=== PATIENT | female | born 1955 | race Caucasian/White ===

== ENCOUNTER 2021-12-12 11:28 | Inpatient (IN) | payer MEDICARE, OTHER ==
[2021-12-12 13:04] LABS: ANION GAP 19.8 mEq/L (7-13)
[2021-12-12] MEDS ORDERED: Sodium Chloride 0.9% 1,000 ML IV ONE (13:18)
[2021-12-12] MEDS ORDERED: Piperacillin/Tazobactam 3.375 GM in Sodium Chloride 0.9% 100 ML IV ONE ×2 (13:26→18:00)
[2021-12-12] MEDS ORDERED: Ondansetron 4 MG/2 ML SDV IVPUSH ONE (13:57)
[2021-12-12] MEDS ORDERED: Lidocaine 2% Jelly 10 ML Urojet MUCMEM ONE (14:15)
[2021-12-12] MEDS ORDERED: Acetaminophen/HYDROcodone 325-5 MG Tab PO PRN (15:09)
[2021-12-12] MEDS ORDERED: Ondansetron 4 MG/2 ML SDV IVPUSH PRN (15:10)
[2021-12-12] MEDS ORDERED: Polyethylene Glycol 3350 Powder 17 GM Packet PO PRN (15:10)
[2021-12-12] MEDS ORDERED: Magnesium Hydroxide 400 MG/5 ML Susp 30 ML Cup PO PRN (15:10)
[2021-12-12] MEDS ORDERED: Albuterol/Ipratropium 3.0-0.5 MG/3 ML Neb Soln NEB PRN (15:10)
[2021-12-12] MEDS ORDERED: HYDROmorphone 0.5 MG/0.5 ML Syringe IVPUSH PRN (15:10)
[2021-12-12] MEDS: Sodium Chloride 0.9% 1,000 ML IV SCH (17:09)
[2021-12-12] MEDS: Saccharomyces Boulardii (Probiotic) 250 MG Cap PO SCH (21:19)
[2021-12-12] MEDS: Phenazopyridine 95 MG Tab PO SCH (21:20)
[2021-12-12] MEDS: Piperacillin/Tazobactam 2.25 GM in Sodium Chloride 0.9% 50 ML IV SCH (21:20)
[2021-12-12] MEDS: Zolpidem 5 MG Tab PO PRN (21:22)
[2021-12-12] MEDS ORDERED: Dexamethasone 4 MG/ML SDV IVPUSH ONE (22:27)
[2021-12-12] MEDS ORDERED: Pantoprazole 40 MG Vial IVPUSH ONE (22:29)
[2021-12-12] MEDS: Hydroxychloroquine 200 MG Tab PO SCH (23:48)
[2021-12-13] MEDS: Sodium Chloride 0.9% 1,000 ML IV SCH ×2 (04:33→16:08)
[2021-12-13] MEDS: Piperacillin/Tazobactam 2.25 GM in Sodium Chloride 0.9% 50 ML IV SCH ×3 (06:12→21:22)
[2021-12-13] MEDS: Levothyroxine 50 MCG Tab PO SCH (06:13)
[2021-12-13 07:34] LABS: ANION GAP 19.5 mEq/L (7-13)
[2021-12-13] MEDS: Sodium Chloride 0.9% 10 ML Syringe FLUSH SCH ×3 (08:19→21:22)
[2021-12-13] MEDS: predniSONE 20 MG Tab PO SCH (08:19)
[2021-12-13] MEDS: DULoxetine 30 MG Cap PO SCH (08:19)
[2021-12-13] MEDS: Saccharomyces Boulardii (Probiotic) 250 MG Cap PO SCH ×2 (08:20→21:21)
[2021-12-13] MEDS: Hydroxychloroquine 200 MG Tab PO SCH (08:20)
[2021-12-13] MEDS: Phenazopyridine 95 MG Tab PO SCH ×2 (08:20→21:21)
[2021-12-13] MEDS: Cholecalciferol (Vitamin D3) 25 MCG Tab PO SCH (08:20)
[2021-12-13] MEDS: Pantoprazole 40 MG Vial IVPUSH SCH ×2 (08:21→21:21)
[2021-12-13] MEDS ORDERED: Simethicone 80 MG Tab.Chew PO PRN (15:55)
[2021-12-13] MEDS: Zolpidem 5 MG Tab PO PRN (21:59)
[2021-12-13] MEDS ORDERED: Sodium Bicarbonate 650 MG Tab PO STA ×2 (22:03)
[2021-12-14] MEDS: Sodium Chloride 0.9% 1,000 ML IV SCH (03:01)
[2021-12-14] MEDS: Levothyroxine 50 MCG Tab PO SCH (05:58)
[2021-12-14] MEDS: Piperacillin/Tazobactam 2.25 GM in Sodium Chloride 0.9% 50 ML IV SCH ×3 (05:58→21:26)
[2021-12-14 07:14] LABS: ANION GAP 19.2 mEq/L (7-13)
[2021-12-14] MEDS: predniSONE 20 MG Tab PO SCH (08:14)
[2021-12-14] MEDS: Cholecalciferol (Vitamin D3) 25 MCG Tab PO SCH (08:14)
[2021-12-14] MEDS: Hydroxychloroquine 200 MG Tab PO SCH (08:15)
[2021-12-14] MEDS: DULoxetine 30 MG Cap PO SCH (08:15)
[2021-12-14] MEDS: Phenazopyridine 95 MG Tab PO SCH ×2 (08:15→21:21)
[2021-12-14] MEDS: Sodium Chloride 0.9% 10 ML Syringe FLUSH SCH (08:18)
[2021-12-14] MEDS: Pantoprazole 40 MG Vial IVPUSH SCH ×2 (08:18→21:26)
[2021-12-14] MEDS ORDERED: Sodium Bicarbonate 650 MG Tab PO SCH (09:00)
[2021-12-14] MEDS: Saccharomyces Boulardii (Probiotic) 250 MG Cap PO SCH ×2 (09:56→21:20)
[2021-12-14] MEDS ORDERED: NACL IV SCH (10:30)
[2021-12-14] MEDS ORDERED: DEXTROSE IV SCH (10:30)
[2021-12-14] MEDS ORDERED: SODIUM BICARBONATE IV SCH (10:30)
[2021-12-14 20:21] LABS: ANION GAP 14.3 mEq/L (7-13)
[2021-12-14] MEDS: Zolpidem 5 MG Tab PO PRN (21:21)
[2021-12-14] MEDS: Sodium Chloride 0.9% 10 ML Syringe FLUSH PRN (21:27)
[2021-12-15] MEDS: Levothyroxine 50 MCG Tab PO SCH (05:41)
[2021-12-15] MEDS: Piperacillin/Tazobactam 2.25 GM in Sodium Chloride 0.9% 50 ML IV SCH ×3 (05:41→22:02)
[2021-12-15] MEDS: Phenazopyridine 95 MG Tab PO SCH (09:27)
[2021-12-15] MEDS: Hydroxychloroquine 200 MG Tab PO SCH (09:28)
[2021-12-15] MEDS: Sodium Chloride 0.9% 10 ML Syringe FLUSH SCH ×3 (09:28→20:58)
[2021-12-15] MEDS: Saccharomyces Boulardii (Probiotic) 250 MG Cap PO SCH ×2 (09:28→20:45)
[2021-12-15] MEDS: predniSONE 20 MG Tab PO SCH (09:28)
[2021-12-15] MEDS: DULoxetine 30 MG Cap PO SCH (09:29)
[2021-12-15] MEDS: Pantoprazole 40 MG Vial IVPUSH SCH ×2 (09:29→20:47)
[2021-12-15] MEDS: Cholecalciferol (Vitamin D3) 25 MCG Tab PO SCH (09:29)
[2021-12-15] MEDS: Acetaminophen 325 MG Tab PO PRN (18:20)
[2021-12-15] MEDS ORDERED: Sodium Chloride 0.9% 1,000 ML IV SCH (20:15)
[2021-12-15] MEDS: Melatonin 3 MG Tab PO PRN (20:46)
[2021-12-15] MEDS: diphenhydrAMINE 25 MG Tab PO PRN (20:46)
[2021-12-15] MEDS: Temazepam 15 MG Cap PO PRN (20:46)
[2021-12-16] MEDS: Piperacillin/Tazobactam 2.25 GM in Sodium Chloride 0.9% 50 ML IV SCH ×3 (05:40→21:41)
[2021-12-16] MEDS: Levothyroxine 50 MCG Tab PO SCH (05:42)
[2021-12-16 07:02] LABS: ANION GAP 13.8 mEq/L (7-13)
[2021-12-16] MEDS: Saccharomyces Boulardii (Probiotic) 250 MG Cap PO SCH ×2 (08:49→20:40)
[2021-12-16] MEDS: predniSONE 20 MG Tab PO SCH (08:49)
[2021-12-16] MEDS: Sodium Chloride 0.9% 10 ML Syringe FLUSH SCH ×2 (08:50→20:40)
[2021-12-16] MEDS: DULoxetine 30 MG Cap PO SCH (08:50)
[2021-12-16] MEDS: Cholecalciferol (Vitamin D3) 25 MCG Tab PO SCH (08:50)
[2021-12-16] MEDS: Hydroxychloroquine 200 MG Tab PO SCH (08:50)
[2021-12-16] MEDS: Pantoprazole 40 MG Vial IVPUSH SCH ×2 (08:57→20:38)
[2021-12-16] MEDS ORDERED: Magnesium Sulfate/Water 2 GM in Premix Bag 1 BAG IV ONE (10:00)
[2021-12-16] MEDS: Temazepam 15 MG Cap PO PRN (20:39)
[2021-12-16] MEDS: diphenhydrAMINE 25 MG Tab PO PRN (20:39)
[2021-12-16] MEDS: Melatonin 3 MG Tab PO PRN (20:39)
[2021-12-17] MEDS: Piperacillin/Tazobactam 2.25 GM in Sodium Chloride 0.9% 50 ML IV SCH (05:31)
[2021-12-17] MEDS: Levothyroxine 50 MCG Tab PO SCH (05:31)
[2021-12-17] MEDS: Pantoprazole 40 MG Vial IVPUSH SCH ×2 (08:27→20:51)
[2021-12-17] MEDS: Cholecalciferol (Vitamin D3) 25 MCG Tab PO SCH (08:27)
[2021-12-17] MEDS: predniSONE 20 MG Tab PO SCH (08:27)
[2021-12-17] MEDS: Hydroxychloroquine 200 MG Tab PO SCH (08:27)
[2021-12-17] MEDS: DULoxetine 30 MG Cap PO SCH (08:27)
[2021-12-17] MEDS: Sodium Chloride 0.9% 10 ML Syringe FLUSH SCH ×2 (08:28→20:50)
[2021-12-17] MEDS: Saccharomyces Boulardii (Probiotic) 250 MG Cap PO SCH ×2 (08:29→20:46)
[2021-12-17] MEDS ORDERED: Phenazopyridine 95 MG Tab PO PRN (10:41)
[2021-12-17] MEDS: Melatonin 3 MG Tab PO PRN (20:44)
[2021-12-17] MEDS: Phenazopyridine 95 MG Tab PO SCH (20:44)
[2021-12-17] MEDS: Ciprofloxacin 500 MG Tab PO SCH (20:44)
[2021-12-17] MEDS: diphenhydrAMINE 25 MG Tab PO PRN (23:29)
[2021-12-18] MEDS: Sodium Chloride 0.9% 10 ML Syringe FLUSH PRN (06:34)
[2021-12-18] MEDS: Levothyroxine 50 MCG Tab PO SCH (06:41)
[2021-12-18] MEDS: Saccharomyces Boulardii (Probiotic) 250 MG Cap PO SCH ×2 (08:22→20:33)
[2021-12-18] MEDS: DULoxetine 30 MG Cap PO SCH (08:22)
[2021-12-18] MEDS: Hydroxychloroquine 200 MG Tab PO SCH (08:22)
[2021-12-18] MEDS: predniSONE 20 MG Tab PO SCH (08:23)
[2021-12-18] MEDS: Phenazopyridine 95 MG Tab PO SCH ×2 (08:23→20:34)
[2021-12-18] MEDS: Ciprofloxacin 500 MG Tab PO SCH ×2 (08:24→20:33)
[2021-12-18] MEDS: Cholecalciferol (Vitamin D3) 25 MCG Tab PO SCH (08:24)
[2021-12-18] MEDS: Sodium Chloride 0.9% 10 ML Syringe FLUSH SCH ×2 (08:25→20:35)
[2021-12-18] MEDS: Pantoprazole 40 MG Vial IVPUSH SCH ×2 (08:25→20:35)
[2021-12-19] MEDS: Levothyroxine 50 MCG Tab PO SCH (05:45)
[2021-12-19] MEDS: Ciprofloxacin 500 MG Tab PO SCH ×2 (08:25→20:30)
[2021-12-19] MEDS: Saccharomyces Boulardii (Probiotic) 250 MG Cap PO SCH ×2 (08:26→20:30)
[2021-12-19] MEDS: Phenazopyridine 95 MG Tab PO SCH ×2 (08:27→20:31)
[2021-12-19] MEDS: predniSONE 20 MG Tab PO SCH (08:29)
[2021-12-19] MEDS: Hydroxychloroquine 200 MG Tab PO SCH (08:29)
[2021-12-19] MEDS: Cholecalciferol (Vitamin D3) 25 MCG Tab PO SCH (08:30)
[2021-12-19] MEDS: DULoxetine 30 MG Cap PO SCH (08:30)
[2021-12-19] MEDS: Pantoprazole 40 MG Vial IVPUSH SCH ×2 (08:31→20:29)
[2021-12-19] MEDS: Sodium Chloride 0.9% 10 ML Syringe FLUSH SCH (08:31)
[2021-12-19 10:15] LABS: ANION GAP 10.9 mEq/L (7-13)
[2021-12-19] MEDS: Acetaminophen 325 MG Tab PO PRN (14:44)
[2021-12-19] MEDS: Melatonin 3 MG Tab PO PRN (20:31)
[2021-12-19] MEDS: Temazepam 15 MG Cap PO PRN (20:31)
[2021-12-19] MEDS: diphenhydrAMINE 25 MG Tab PO PRN (20:31)
[2021-12-20] MEDS: Levothyroxine 50 MCG Tab PO SCH (05:20)
[2021-12-20] MEDS: predniSONE 20 MG Tab PO SCH (08:16)
[2021-12-20] MEDS: Phenazopyridine 95 MG Tab PO SCH ×2 (08:16→21:04)
[2021-12-20] MEDS: Saccharomyces Boulardii (Probiotic) 250 MG Cap PO SCH ×2 (08:16→21:03)
[2021-12-20] MEDS: Hydroxychloroquine 200 MG Tab PO SCH (08:16)
[2021-12-20] MEDS: Pantoprazole 40 MG Vial IVPUSH SCH ×2 (08:16→21:04)
[2021-12-20] MEDS: Ciprofloxacin 500 MG Tab PO SCH ×2 (08:17→21:03)
[2021-12-20] MEDS: DULoxetine 30 MG Cap PO SCH (08:17)
[2021-12-20] MEDS: Cholecalciferol (Vitamin D3) 25 MCG Tab PO SCH (08:17)
[2021-12-20] MEDS: Sodium Chloride 0.9% 10 ML Syringe FLUSH SCH ×3 (08:21→21:04)
[2021-12-20] MEDS: diphenhydrAMINE 25 MG Tab PO PRN (21:03)
[2021-12-20] MEDS: Melatonin 3 MG Tab PO PRN (21:03)
[2021-12-20] MEDS: Temazepam 15 MG Cap PO PRN (21:03)
[2021-12-21] MEDS: Acetaminophen 325 MG Tab PO PRN ×3 (01:59→22:18)
[2021-12-21] MEDS: Levothyroxine 50 MCG Tab PO SCH (06:14)
[2021-12-21] MEDS: Sodium Chloride 0.9% 10 ML Syringe FLUSH SCH ×2 (10:22→21:43)
[2021-12-21] MEDS: Saccharomyces Boulardii (Probiotic) 250 MG Cap PO SCH ×2 (10:22→21:42)
[2021-12-21] MEDS: predniSONE 20 MG Tab PO SCH (10:22)
[2021-12-21] MEDS: Cholecalciferol (Vitamin D3) 25 MCG Tab PO SCH (10:23)
[2021-12-21] MEDS: Phenazopyridine 95 MG Tab PO SCH ×2 (10:23→21:42)
[2021-12-21] MEDS: Ciprofloxacin 500 MG Tab PO SCH ×2 (10:23→21:41)
[2021-12-21] MEDS: DULoxetine 30 MG Cap PO SCH (10:23)
[2021-12-21] MEDS: Hydroxychloroquine 200 MG Tab PO SCH (10:23)
[2021-12-21] MEDS: Pantoprazole 40 MG Vial IVPUSH SCH ×2 (10:25→21:42)
[2021-12-21] MEDS: diphenhydrAMINE 25 MG Tab PO PRN (22:19)
[2021-12-21] MEDS: Melatonin 3 MG Tab PO PRN (22:19)
[2021-12-21] MEDS: Temazepam 15 MG Cap PO PRN (22:19)
[2021-12-22] MEDS: Levothyroxine 50 MCG Tab PO SCH (06:25)
[2021-12-22] MEDS: Saccharomyces Boulardii (Probiotic) 250 MG Cap PO SCH ×2 (08:59→20:49)
[2021-12-22] MEDS: DULoxetine 30 MG Cap PO SCH (08:59)
[2021-12-22] MEDS: Cholecalciferol (Vitamin D3) 25 MCG Tab PO SCH (08:59)
[2021-12-22] MEDS: predniSONE 20 MG Tab PO SCH (08:59)
[2021-12-22] MEDS: Hydroxychloroquine 200 MG Tab PO SCH (08:59)
[2021-12-22] MEDS: Phenazopyridine 95 MG Tab PO SCH ×2 (08:59→20:49)
[2021-12-22] MEDS: Sodium Chloride 0.9% 10 ML Syringe FLUSH SCH ×2 (09:00→21:50)
[2021-12-22] MEDS: Pantoprazole 40 MG Vial IVPUSH SCH (09:00)
[2021-12-22] MEDS: Acetaminophen 325 MG Tab PO PRN (20:48)
[2021-12-22] MEDS: Melatonin 3 MG Tab PO PRN (20:49)
[2021-12-22] MEDS: Temazepam 15 MG Cap PO PRN (20:49)
[2021-12-22] MEDS: diphenhydrAMINE 25 MG Tab PO PRN (20:50)
[2021-12-23] MEDS: Pantoprazole 40 MG Tab.CR PO SCH ×2 (06:01→18:03)
[2021-12-23] MEDS: Levothyroxine 50 MCG Tab PO SCH (06:01)
[2021-12-23 07:13] LABS: ANION GAP 9.5 mEq/L (7-13)
[2021-12-23] MEDS: Hydroxychloroquine 200 MG Tab PO SCH (08:54)
[2021-12-23] MEDS: Cholecalciferol (Vitamin D3) 25 MCG Tab PO SCH (08:54)
[2021-12-23] MEDS: DULoxetine 30 MG Cap PO SCH (08:54)
[2021-12-23] MEDS: Saccharomyces Boulardii (Probiotic) 250 MG Cap PO SCH ×2 (08:54→21:39)
[2021-12-23] MEDS: predniSONE 20 MG Tab PO SCH (08:54)
[2021-12-23] MEDS: Phenazopyridine 95 MG Tab PO SCH ×2 (08:54→21:39)
[2021-12-23] MEDS: Sodium Chloride 0.9% 10 ML Syringe FLUSH SCH ×2 (08:56→21:40)
[2021-12-23] MEDS: Temazepam 15 MG Cap PO PRN (21:39)
[2021-12-23] MEDS: diphenhydrAMINE 25 MG Tab PO PRN (21:39)
[2021-12-24] MEDS: Pantoprazole 40 MG Tab.CR PO SCH ×2 (05:19→15:53)
[2021-12-24] MEDS: Levothyroxine 50 MCG Tab PO SCH (05:20)
[2021-12-24] MEDS: Cholecalciferol (Vitamin D3) 25 MCG Tab PO SCH (08:03)
[2021-12-24] MEDS: Saccharomyces Boulardii (Probiotic) 250 MG Cap PO SCH ×2 (08:03→21:11)
[2021-12-24] MEDS: predniSONE 20 MG Tab PO SCH (08:04)
[2021-12-24] MEDS: DULoxetine 30 MG Cap PO SCH (08:04)
[2021-12-24] MEDS: Phenazopyridine 95 MG Tab PO SCH ×2 (08:04→21:11)
[2021-12-24] MEDS: Hydroxychloroquine 200 MG Tab PO SCH (08:05)
[2021-12-24] MEDS: Sodium Chloride 0.9% 10 ML Syringe FLUSH SCH ×2 (08:07→22:35)
[2021-12-24] MEDS: Nystatin Topical Powder 30 GM Bottle TOP SCH ×2 (08:09→20:30)
[2021-12-24] MEDS: Tamsulosin 0.4 MG Cap.ER PO SCH (13:54)
[2021-12-24] MEDS: Melatonin 3 MG Tab PO PRN (21:11)
[2021-12-24] MEDS: Temazepam 15 MG Cap PO PRN (21:11)
[2021-12-24] MEDS: diphenhydrAMINE 25 MG Tab PO PRN (21:11)
[2021-12-25] MEDS: Pantoprazole 40 MG Tab.CR PO SCH ×2 (06:12→15:15)
[2021-12-25] MEDS: Levothyroxine 50 MCG Tab PO SCH (06:12)
[2021-12-25 07:05] LABS: ANION GAP 11.8 mEq/L (7-13)
[2021-12-25] MEDS: Phenazopyridine 95 MG Tab PO SCH ×2 (10:00→21:00)
[2021-12-25] MEDS: Saccharomyces Boulardii (Probiotic) 250 MG Cap PO SCH ×2 (10:00→21:00)
[2021-12-25] MEDS: Cholecalciferol (Vitamin D3) 25 MCG Tab PO SCH (10:00)
[2021-12-25] MEDS: Hydroxychloroquine 200 MG Tab PO SCH (10:01)
[2021-12-25] MEDS: Tamsulosin 0.4 MG Cap.ER PO SCH (10:01)
[2021-12-25] MEDS: predniSONE 20 MG Tab PO SCH (10:01)
[2021-12-25] MEDS: Sodium Chloride 0.9% 10 ML Syringe FLUSH SCH ×2 (10:01→21:01)
[2021-12-25] MEDS: DULoxetine 30 MG Cap PO SCH (10:01)
[2021-12-25] MEDS: Nystatin Topical Powder 30 GM Bottle TOP SCH ×2 (10:04→21:01)
[2021-12-25] MEDS: Temazepam 15 MG Cap PO PRN (21:00)
[2021-12-25] MEDS: diphenhydrAMINE 25 MG Tab PO PRN (21:00)
[2021-12-25] MEDS: Melatonin 3 MG Tab PO PRN (21:00)
[2021-12-25] MEDS: Acetaminophen 325 MG Tab PO PRN (21:09)
[2021-12-26] MEDS: Pantoprazole 40 MG Tab.CR PO SCH ×2 (06:02→15:05)
[2021-12-26] MEDS: Levothyroxine 50 MCG Tab PO SCH (06:02)
[2021-12-26 07:16] LABS: ANION GAP 10.4 mEq/L (7-13)
[2021-12-26] MEDS: predniSONE 20 MG Tab PO SCH (08:19)
[2021-12-26] MEDS: Saccharomyces Boulardii (Probiotic) 250 MG Cap PO SCH ×2 (08:19→21:20)
[2021-12-26] MEDS: Cholecalciferol (Vitamin D3) 25 MCG Tab PO SCH (08:20)
[2021-12-26] MEDS: Hydroxychloroquine 200 MG Tab PO SCH (08:20)
[2021-12-26] MEDS: Tamsulosin 0.4 MG Cap.ER PO SCH (08:20)
[2021-12-26] MEDS: Phenazopyridine 95 MG Tab PO SCH ×2 (08:20→21:20)
[2021-12-26] MEDS: Sodium Chloride 0.9% 10 ML Syringe FLUSH SCH (08:20)
[2021-12-26] MEDS: DULoxetine 30 MG Cap PO SCH (08:20)
[2021-12-26] MEDS: Nystatin Topical Powder 30 GM Bottle TOP SCH ×2 (15:06→21:43)
[2021-12-26] MEDS ORDERED: Metoclopramide 10 MG/2 ML SDV IM ONE (17:25)
[2021-12-26] MEDS: diphenhydrAMINE 25 MG Tab PO PRN (21:21)
[2021-12-26] MEDS: Temazepam 15 MG Cap PO PRN (21:21)
[2021-12-26] MEDS: Acetaminophen 325 MG Tab PO PRN (21:22)
[2021-12-26] MEDS: Melatonin 3 MG Tab PO PRN (21:23)
[2021-12-27] MEDS: Levothyroxine 50 MCG Tab PO SCH (06:07)
[2021-12-27] MEDS: Pantoprazole 40 MG Tab.CR PO SCH ×2 (06:07→15:54)
[2021-12-27] MEDS: Phenazopyridine 95 MG Tab PO SCH ×2 (08:38→21:06)
[2021-12-27] MEDS: Saccharomyces Boulardii (Probiotic) 250 MG Cap PO SCH ×2 (08:38→21:06)
[2021-12-27] MEDS: Cholecalciferol (Vitamin D3) 25 MCG Tab PO SCH (08:39)
[2021-12-27] MEDS: Hydroxychloroquine 200 MG Tab PO SCH (08:39)
[2021-12-27] MEDS: DULoxetine 30 MG Cap PO SCH (08:39)
[2021-12-27] MEDS: Tamsulosin 0.4 MG Cap.ER PO SCH (08:39)
[2021-12-27] MEDS: predniSONE 10 MG Tab PO SCH (08:39)
[2021-12-27] MEDS: Nystatin Topical Powder 30 GM Bottle TOP SCH ×2 (08:40→21:07)
[2021-12-27] MEDS: Melatonin 3 MG Tab PO PRN (21:06)
[2021-12-27] MEDS: diphenhydrAMINE 25 MG Tab PO PRN (21:06)
[2021-12-27] MEDS: Temazepam 15 MG Cap PO PRN (21:06)
[2021-12-28] MEDS: Levothyroxine 50 MCG Tab PO SCH (05:12)
[2021-12-28] MEDS: Pantoprazole 40 MG Tab.CR PO SCH ×2 (05:12→18:23)
[2021-12-28 07:02] LABS: ANION GAP 11.4 mEq/L (7-13)
[2021-12-28] MEDS: Cholecalciferol (Vitamin D3) 25 MCG Tab PO SCH (09:46)
[2021-12-28] MEDS: Saccharomyces Boulardii (Probiotic) 250 MG Cap PO SCH ×2 (09:47→21:33)
[2021-12-28] MEDS: DULoxetine 30 MG Cap PO SCH (09:47)
[2021-12-28] MEDS: Hydroxychloroquine 200 MG Tab PO SCH (09:47)
[2021-12-28] MEDS: predniSONE 10 MG Tab PO SCH (09:47)
[2021-12-28] MEDS: Phenazopyridine 95 MG Tab PO SCH ×2 (09:48→21:34)
[2021-12-28] MEDS: Tamsulosin 0.4 MG Cap.ER PO SCH (09:49)
[2021-12-28] MEDS: Nystatin Topical Powder 30 GM Bottle TOP SCH ×2 (10:51→21:34)
[2021-12-28] MEDS: diphenhydrAMINE 25 MG Tab PO PRN (21:34)
[2021-12-28] MEDS: Melatonin 3 MG Tab PO PRN (21:34)
[2021-12-28] MEDS: Temazepam 15 MG Cap PO PRN (21:34)
[2021-12-28] MEDS: Acetaminophen 325 MG Tab PO PRN (21:34)
[2021-12-29] MEDS: Levothyroxine 50 MCG Tab PO SCH (06:03)
[2021-12-29] MEDS: Pantoprazole 40 MG Tab.CR PO SCH ×2 (06:03→17:24)
[2021-12-29 06:58] LABS: ANION GAP 11.1 mEq/L (7-13)
[2021-12-29] MEDS: Nystatin Topical Powder 30 GM Bottle TOP SCH ×2 (08:17→21:40)
[2021-12-29] MEDS: Saccharomyces Boulardii (Probiotic) 250 MG Cap PO SCH ×2 (08:17→21:37)
[2021-12-29] MEDS: Tamsulosin 0.4 MG Cap.ER PO SCH (08:17)
[2021-12-29] MEDS: Cholecalciferol (Vitamin D3) 25 MCG Tab PO SCH (08:17)
[2021-12-29] MEDS: predniSONE 10 MG Tab PO SCH (08:17)
[2021-12-29] MEDS: Hydroxychloroquine 200 MG Tab PO SCH (08:17)
[2021-12-29] MEDS: Phenazopyridine 95 MG Tab PO SCH (08:17)
[2021-12-29] MEDS: DULoxetine 30 MG Cap PO SCH (08:17)
[2021-12-29] MEDS: Acetaminophen 325 MG Tab PO PRN (21:37)
[2021-12-29] MEDS: Melatonin 3 MG Tab PO PRN (21:37)
[2021-12-29] MEDS: Temazepam 15 MG Cap PO PRN (21:37)
[2021-12-29] MEDS: diphenhydrAMINE 25 MG Tab PO PRN (21:38)
[2021-12-30] MEDS: Levothyroxine 50 MCG Tab PO SCH (05:43)
[2021-12-30] MEDS: Pantoprazole 40 MG Tab.CR PO SCH ×2 (05:43→15:27)
[2021-12-30 07:11] LABS: ANION GAP 10.6 mEq/L (7-13)
[2021-12-30] MEDS: DULoxetine 30 MG Cap PO SCH (08:01)
[2021-12-30] MEDS: Hydroxychloroquine 200 MG Tab PO SCH (08:02)
[2021-12-30] MEDS: Saccharomyces Boulardii (Probiotic) 250 MG Cap PO SCH ×2 (08:02→20:25)
[2021-12-30] MEDS: predniSONE 10 MG Tab PO SCH (08:02)
[2021-12-30] MEDS: Tamsulosin 0.4 MG Cap.ER PO SCH (08:02)
[2021-12-30] MEDS: Cholecalciferol (Vitamin D3) 25 MCG Tab PO SCH (08:02)
[2021-12-30] MEDS: Nystatin Topical Powder 30 GM Bottle TOP SCH ×2 (08:05→20:32)
[2021-12-30] MEDS: Temazepam 15 MG Cap PO PRN (20:26)
[2021-12-30] MEDS: diphenhydrAMINE 25 MG Tab PO PRN (20:26)
[2021-12-30] MEDS: Melatonin 3 MG Tab PO PRN (20:26)
[2021-12-31] MEDS: Levothyroxine 50 MCG Tab PO SCH (05:12)
[2021-12-31] MEDS: Pantoprazole 40 MG Tab.CR PO SCH ×2 (05:13→16:58)
[2021-12-31 06:53] LABS: ANION GAP 9.1 mEq/L (7-13)
[2021-12-31] MEDS: DULoxetine 30 MG Cap PO SCH (08:22)
[2021-12-31] MEDS: Hydroxychloroquine 200 MG Tab PO SCH (08:22)
[2021-12-31] MEDS: Ciprofloxacin 500 MG Tab PO SCH ×2 (08:22→21:42)
[2021-12-31] MEDS: predniSONE 10 MG Tab PO SCH (08:22)
[2021-12-31] MEDS: Cholecalciferol (Vitamin D3) 25 MCG Tab PO SCH (08:22)
[2021-12-31] MEDS: Acetaminophen 325 MG Tab PO PRN (08:22)
[2021-12-31] MEDS: Saccharomyces Boulardii (Probiotic) 250 MG Cap PO SCH ×2 (08:22→21:42)
[2021-12-31] MEDS: Nystatin Topical Powder 30 GM Bottle TOP SCH ×2 (16:58→21:43)
[2021-12-31] MEDS: Temazepam 15 MG Cap PO PRN (21:42)
[2021-12-31] MEDS: Melatonin 3 MG Tab PO PRN (21:42)
[2021-12-31] MEDS: diphenhydrAMINE 25 MG Tab PO PRN (21:42)
[2022-01-01] MEDS: Pantoprazole 40 MG Tab.CR PO SCH (06:04)
[2022-01-01] MEDS: Levothyroxine 50 MCG Tab PO SCH (06:04)
[2022-01-01] MEDS: DULoxetine 30 MG Cap PO SCH (09:14)
[2022-01-01] MEDS: Hydroxychloroquine 200 MG Tab PO SCH (09:14)
[2022-01-01] MEDS: Ciprofloxacin 500 MG Tab PO SCH (09:14)
[2022-01-01] MEDS: Cholecalciferol (Vitamin D3) 25 MCG Tab PO SCH (09:14)
[2022-01-01] MEDS: Saccharomyces Boulardii (Probiotic) 250 MG Cap PO SCH (09:14)
[2022-01-01] MEDS: predniSONE 10 MG Tab PO SCH (09:15)
[2022-01-01] MEDS: Nystatin Topical Powder 30 GM Bottle TOP SCH (09:16)
== END 2022-01-01 12:30 | DRG 872 ==
LOC: DL.ED 11:28 → DL.MS 15:08
PROVIDERS: ADMIT Internal Medicine; ATTEND Internal Medicine
DX: A41.51 Sepsis due to Escherichia coli [E. coli] (principal); N10 Acute pyelonephritis; Z79.899 Other long term (current) drug therapy; E87.1 Hypo-osmolality and hyponatremia; N17.9 Acute kidney failure, unspecified; E87.20 Acidosis, unspecified; D69.3 Immune thrombocytopenic purpura; Z66 Do not resuscitate; Z20.822 Contact with and (suspected) exposure to COVID-19; N30.01 Acute cystitis with hematuria; M32.14 Glomerular disease in systemic lupus erythematosus; E87.8 Other disorders of electrolyte and fluid balance, not elsewhere classified; K80.20 Calculus of gallbladder without cholecystitis without obstruction; N18.30 Chronic kidney disease, stage 3 unspecified; M81.0 Age-related osteoporosis without current pathological fracture; E55.9 Vitamin D deficiency, unspecified; E03.9 Hypothyroidism, unspecified; G93.32 Myalgic encephalomyelitis/chronic fatigue syndrome; R74.8 Abnormal levels of other serum enzymes; R73.9 Hyperglycemia, unspecified; M32.9 Systemic lupus erythematosus, unspecified; Z28.82 Immunization not carried out because of caregiver refusal; Z87.891 Personal history of nicotine dependence; Z79.890 Hormone replacement therapy; Z79.52 Long term (current) use of systemic steroids
CPT/HCPCS: 36415; 51702; 74176; 76770; 80053; 81001; 81003; 82150; 82272; 83605; 83690; 83735; 84145; 84443; 85025; 86140; 87040 ×2; 87086; 87088; 87186; 96365; 96375; 99285; C1758; J2405; J2543; J7030; U0002; 51700; 51798; 80048; 82570; 82607; 82947; 84156; 85651; 86160; 86225; 97110-GP; 97116-GP; 97161-GP; 97165-GO; 97530-GO; 97530-GP; 99284; A9270-GY; C9113; J1100; J2765; J3475; J3490; J7042; J7512

== ENCOUNTER 2022-08-01 22:18 | Inpatient (IN) | payer MEDICARE, OTHER ==
[2022-08-01] MEDS ORDERED: Sodium Chloride 0.9% 10 ML Syringe FLUSH PRN (23:01)
[2022-08-01 23:48] LABS: HEMATOCRIT 44.2 % (37.0-47.0); HEMOGLOBIN 14.2 g/dL (12.0-16.0); MEAN CORPUSCULAR HEMOGLOBIN 31.2 pg (27.0-34.0); MEAN CORPUSCULAR HGB CONC 32.1 g/dL (33.0-35.0); MEAN CORPUSCULAR VOLUME 97.1 fL (80-100); PLATELET COUNT,PLT 243 10^3/uL (150-450); RED BLOOD CELL COUNT 4.55 10^6/uL (4.2-5.4); WHITE BLOOD CELL COUNT,WBC 17.8 10^3/uL (5.0-10.0)
[2022-08-01 23:57] LABS: BASOPHILS PERCENT AUTO 0.1 % (0.0-1.0); EOSINOPHILS PERCENT AUTO 0.1 % (1.0-3.0); LYMPHOCYTES PERCENT AUTO 1.5 % (20.5-50.1); MONOCYTES PERCENT AUTO 3.9 % (2-8); NEUTROPHILS PERCENT AUTO 94.4 % (42.2-75.2)
[2022-08-02 00:08] LABS: LACTIC ACID 1.7 mmol/L (0.4-2.0)
[2022-08-02 00:13] LABS: ALANINE AMINOTRANSFERASE,ALT 27 U/L (14-59); ALBUMIN 2.4 g/dL (3.4-5.0); ALKALINE PHOSPHATASE 268 U/L (46-116); ANION GAP 15.8 mEq/L (7-13); ASPARTATE AMNIOTRANSFERASE,AST 48 U/L (15-37); BLOOD UREA NITROGEN,BUN 38 mg/dL (7-18); BUN/CREATININE RATIO 17.8 (No establ ref range); CALCIUM 9.2 mg/dL (8.5-10.1); CARBON DIOXIDE,CO2 26 mmol/L (21-32); CHLORIDE,CL 96 mmol/L (98-107); CREATININE 2.13 mg/dL (0.55-1.02); EST CRCL DRUG DOSING (CG) 19.07 mL/min; GLUCOSE RANDOM 107 mg/dL (70-99); MAGNESIUM 1.8 mg/dL (1.8-2.4); POTASSIUM,K 3.8 mmol/L (3.5-5.1); PROTEIN TOTAL,TP 7.6 g/dL (6.4-8.2); SODIUM,NA 134 mmol/L (136-145); TSH ULTRASENSITIVE 0.68 uIU/mL (0.36-3.74)
[2022-08-02 00:19] LABS: A/G RATIO 0.46; ESTIMATED GFR 25 mL/min (>=60)
[2022-08-02 00:20] LABS: C-REACTIVE PROTEIN > 36.0 mg/dL (0.0-0.9)
[2022-08-02] MEDS ORDERED: Sodium Chloride 0.9% 1,000 ML IV ONE (00:24)
[2022-08-02 01:20] LABS: BAND PERCENT MAN 7 %; LYMPHOCYTES PERCENT MAN 3 % (20-50); MONOCYTES PERCENT MAN 4 % (2-8); SEG NEUTROPHILS PERCENT MAN 86 % (42-75)
[2022-08-02] MEDS ORDERED: Ondansetron 4 MG/2 ML SDV IVPUSH ONE (02:23)
[2022-08-02 02:49] LABS: APPEARANCE,URINE SLIGHTLY CLOUDY (CLEAR); BILIRUBIN,URINE SMALL (NEGATIVE); COLOR,URINE YELLOW (YELLOW); GLUCOSE,URINE NEGATIVE (NEGATIVE); KETONES,URINE TRACE (NEGATIVE); LEUKOCYTE ESTERASE,URINE LARGE (NEGATIVE); NITRITE,URINE NEGATIVE (NEGATIVE); OCCULT BLOOD,URINE LARGE (NEGATIVE); PROTEIN,URINE >=300 (NEGATIVE)
[2022-08-02 03:12] LABS: BACTERIA,URINE MANY /HPF (0-FEW/HPF); EPITHELIAL CELLS,URINE MODERATE /HPF (NOT SEEN); MUCUS,URINE FEW /LPF (NOT SEEN); WBC,URINE >100 /HPF (0-5/HPF)
[2022-08-02] MEDS ORDERED: Ondansetron 4 MG/2 ML SDV IVPUSH PRN (03:15)
[2022-08-02] MEDS ORDERED: Acetaminophen/oxyCODONE 325-5 MG Tab PO PRN (03:15)
[2022-08-02] MEDS ORDERED: Sennosides/Docusate Sodium 50-8.6 MG Tab PO PRN (03:15)
[2022-08-02] MEDS ORDERED: Albuterol/Ipratropium 3.0-0.5 MG/3 ML Neb Soln NEB PRN (03:15)
[2022-08-02] MEDS ORDERED: HYDROmorphone 0.5 MG/0.5 ML Syringe IVPUSH PRN (03:15)
[2022-08-02] MEDS ORDERED: Magnesium Hydroxide 400 MG/5 ML Susp 30 ML Cup PO PRN ×2 (03:15→11:30)
[2022-08-02] MEDS ORDERED: Polyethylene Glycol 3350 Powder 17 GM Packet PO PRN (03:15)
[2022-08-02] MEDS ORDERED: Acetaminophen 325 MG Tab PO PRN ×2 (03:15→11:30)
[2022-08-02] MEDS ORDERED: Metoprolol Tartrate 5 MG/5 ML SDV IVPUSH PRN (03:20)
[2022-08-02] MEDS ORDERED: hydrALAZINE 20 MG/ML SDV IVPUSH PRN (03:20)
[2022-08-02] MEDS: Sodium Chloride 0.9% 1,000 ML IV SCH ×3 (05:43→21:16)
[2022-08-02] MEDS: Piperacillin/Tazobactam 3.375 GM in Sodium Chloride 0.9% 100 ML IV SCH ×4 (05:44→23:26)
[2022-08-02 06:37] LABS: HEMATOCRIT 41.9 % (37.0-47.0); HEMOGLOBIN 13.3 g/dL (12.0-16.0); MEAN CORPUSCULAR HEMOGLOBIN 30.9 pg (27.0-34.0); MEAN CORPUSCULAR HGB CONC 31.7 g/dL (33.0-35.0); MEAN CORPUSCULAR VOLUME 97.4 fL (80-100); PLATELET COUNT,PLT 156 10^3/uL (150-450); WHITE BLOOD CELL COUNT,WBC 12.3 10^3/uL (5.0-10.0)
[2022-08-02 06:57] LABS: LYMPHOCYTES PERCENT AUTO 0.7 % (20.5-50.1); MONOCYTES PERCENT AUTO 1.4 % (2-8); NEUTROPHILS PERCENT AUTO 97.8 % (42.2-75.2)
[2022-08-02 06:58] LABS: BASOPHILS PERCENT AUTO 0.1 % (0.0-1.0)
[2022-08-02 07:01] LABS: ANION GAP 16.4 mEq/L (7-13); BILIRUBIN TOTAL 1.7 mg/dL (0.2-1.0); BUN/CREATININE RATIO 15.9 (No establ ref range); CALCIUM 8.3 mg/dL (8.5-10.1); CREATININE 2.01 mg/dL (0.55-1.02); EST CRCL DRUG DOSING (CG) 20.21 mL/min; MAGNESIUM 1.3 mg/dL (1.8-2.4); POTASSIUM,K 3.4 mmol/L (3.5-5.1); PROTEIN TOTAL,TP 6.4 g/dL (6.4-8.2)
[2022-08-02 07:13] LABS: BAND PERCENT MAN 3 %; LYMPHOCYTES PERCENT MAN 1 % (20-50); MONOCYTES PERCENT MAN 3 % (2-8); SEG NEUTROPHILS PERCENT MAN 93 % (42-75)
[2022-08-02 07:17] LABS: A/G RATIO 0.45; C-REACTIVE PROTEIN 23.9 mg/dL (0.0-0.9)
[2022-08-02 07:28] LABS: SEDIMENTATION RATE MANUAL 77 mm/hr (0-20)
[2022-08-02] MEDS: Saccharomyces Boulardii (Probiotic) 250 MG Cap PO SCH ×2 (08:44→21:30)
[2022-08-02] MEDS ORDERED: predniSONE 10 MG Tab PO SCH (09:00)
[2022-08-02] MEDS ORDERED: Non-Formulary Medication 1 Each (Triamcinolone Acetonide 80 GM Tube) TOP PRN (11:30)
[2022-08-02] MEDS ORDERED: Potassium Chloride 10 MEQ Tab.ER PO ONE (12:00)
[2022-08-02] MEDS ORDERED: Lactated Ringers 1,500 ML IV ONE (13:00)
[2022-08-02] MEDS ORDERED: Midodrine 2.5 MG Tab PO ONE (13:00)
[2022-08-02] MEDS: Hydrocortisone Sodium Succinate 100 MG/2 ML SDV IVPUSH SCH ×2 (13:30→21:31)
[2022-08-02] MEDS ORDERED: Calcium Carbonate 500 MG Tab.Chew PO PRN (13:40)
[2022-08-02] MEDS ORDERED: Magnesium Sulfate/Water 2 GM in Premix Bag 1 BAG IV ONE ×2 (14:00→21:00)
[2022-08-02 14:02] LABS: LACTIC ACID 3.6 mmol/L (0.4-2.0)
[2022-08-02] MEDS: DULoxetine 30 MG Cap PO SCH (15:42)
[2022-08-02] MEDS: Hydroxychloroquine 200 MG Tab PO SCH (15:46)
[2022-08-02] MEDS: Pantoprazole 40 MG Tab.CR PO SCH (15:58)
[2022-08-02] MEDS ORDERED: Norepinephrine Bit/D5W Premix 250 ML IV SCH (16:00)
[2022-08-02] MEDS: Midodrine 2.5 MG Tab PO PRN (21:30)
[2022-08-02] MEDS: Melatonin 3 MG Tab PO SCH (22:00)
[2022-08-03] MEDS ORDERED: Atropine 0.4 MG/ML SDV IVPUSH ONE (05:09)
[2022-08-03] MEDS ORDERED: Atropine 0.1 MG/ML 10 ML Syringe ONE (05:11)
[2022-08-03] MEDS: Piperacillin/Tazobactam 3.375 GM in Sodium Chloride 0.9% 100 ML IV SCH ×3 (05:55→19:36)
[2022-08-03] MEDS: Levothyroxine 50 MCG Tab PO SCH (05:55)
[2022-08-03] MEDS: Pantoprazole 40 MG Tab.CR PO SCH ×2 (05:55→17:24)
[2022-08-03] MEDS: Hydrocortisone Sodium Succinate 100 MG/2 ML SDV IVPUSH SCH ×3 (05:55→21:25)
[2022-08-03 06:25] LABS: HEMATOCRIT 34.7 % (37.0-47.0); HEMOGLOBIN 10.9 g/dL (12.0-16.0); MEAN CORPUSCULAR HGB CONC 31.4 g/dL (33.0-35.0); MEAN CORPUSCULAR VOLUME 98.6 fL (80-100); PLATELET COUNT,PLT 174 10^3/uL (150-450); RED BLOOD CELL COUNT 3.52 10^6/uL (4.2-5.4)
[2022-08-03] MEDS: Midodrine 2.5 MG Tab PO PRN (06:35)
[2022-08-03 06:37] LABS: BASOPHILS PERCENT AUTO 0.1 % (0.0-1.0); EOSINOPHILS PERCENT AUTO 0.1 % (1.0-3.0); LYMPHOCYTES PERCENT AUTO 1.9 % (20.5-50.1); MONOCYTES PERCENT AUTO 4.3 % (2-8); NEUTROPHILS PERCENT AUTO 93.6 % (42.2-75.2)
[2022-08-03 06:52] LABS: ALBUMIN 1.7 g/dL (3.4-5.0); ANION GAP 13.3 mEq/L (7-13); BILIRUBIN TOTAL 0.5 mg/dL (0.2-1.0); BUN/CREATININE RATIO 17.2 (No establ ref range); CALCIUM 7.9 mg/dL (8.5-10.1); CREATININE 1.69 mg/dL (0.55-1.02); EST CRCL DRUG DOSING (CG) 24.04 mL/min; POTASSIUM,K 4.3 mmol/L (3.5-5.1); PROTEIN TOTAL,TP 5.6 g/dL (6.4-8.2)
[2022-08-03 06:53] LABS: A/G RATIO 0.44; C-REACTIVE PROTEIN 26.3 mg/dL (0.0-0.9)
[2022-08-03 06:57] LABS: BAND PERCENT MAN 5 %; LYMPHOCYTES PERCENT MAN 3 % (20-50); MONOCYTES PERCENT MAN 4 % (2-8); SEG NEUTROPHILS PERCENT MAN 88 % (42-75)
[2022-08-03] MEDS: Saccharomyces Boulardii (Probiotic) 250 MG Cap PO SCH ×2 (08:24→21:24)
[2022-08-03] MEDS: Hydroxychloroquine 200 MG Tab PO SCH (08:24)
[2022-08-03] MEDS: Cholecalciferol (Vitamin D3) 25 MCG Tab PO SCH (08:24)
[2022-08-03] MEDS: DULoxetine 30 MG Cap PO SCH (08:25)
[2022-08-03] MEDS ORDERED: Non-Formulary Medication 1 Each (Omeprazole [Omeprazole] 40 MG Capsule.Dr) PO SCH (09:00)
[2022-08-03] MEDS ORDERED: Melatonin 3 MG Tab PO SCH (21:00)
[2022-08-03] MEDS: Melatonin 3 MG Tab PO SCH (21:25)
[2022-08-03] MEDS: Sodium Chloride 0.9% 1,000 ML IV SCH (22:34)
[2022-08-04] MEDS: Piperacillin/Tazobactam 3.375 GM in Sodium Chloride 0.9% 100 ML IV SCH ×4 (00:40→17:09)
[2022-08-04] MEDS: Levothyroxine 50 MCG Tab PO SCH (05:43)
[2022-08-04] MEDS: Hydrocortisone Sodium Succinate 100 MG/2 ML SDV IVPUSH SCH ×2 (05:43→13:57)
[2022-08-04] MEDS: Pantoprazole 40 MG Tab.CR PO SCH ×2 (05:43→15:58)
[2022-08-04 06:26] LABS: HEMATOCRIT 31.8 % (37.0-47.0); MEAN CORPUSCULAR HEMOGLOBIN 31.2 pg (27.0-34.0); MEAN CORPUSCULAR HGB CONC 31.4 g/dL (33.0-35.0); MEAN CORPUSCULAR VOLUME 99.1 fL (80-100); PLATELET COUNT,PLT 133 10^3/uL (150-450); RED BLOOD CELL COUNT 3.21 10^6/uL (4.2-5.4); WHITE BLOOD CELL COUNT,WBC 10.5 10^3/uL (5.0-10.0)
[2022-08-04 06:43] LABS: LYMPHOCYTES PERCENT AUTO 4.5 % (20.5-50.1); MONOCYTES PERCENT AUTO 5.2 % (2-8); NEUTROPHILS PERCENT AUTO 90.3 % (42.2-75.2)
[2022-08-04 06:54] LABS: ALBUMIN 1.6 g/dL (3.4-5.0); ANION GAP 13.3 mEq/L (7-13); BILIRUBIN TOTAL 0.3 mg/dL (0.2-1.0); BUN/CREATININE RATIO 20.8 (No establ ref range); C-REACTIVE PROTEIN 9.6 mg/dL (0.0-0.9); CALCIUM 7.7 mg/dL (8.5-10.1); CREATININE 1.3 mg/dL (0.55-1.02); EST CRCL DRUG DOSING (CG) 31.25 mL/min; MAGNESIUM 1.9 mg/dL (1.8-2.4); POTASSIUM,K 3.3 mmol/L (3.5-5.1); PROTEIN TOTAL,TP 5.3 g/dL (6.4-8.2)
[2022-08-04 06:55] LABS: A/G RATIO 0.43
[2022-08-04 07:02] LABS: BAND PERCENT MAN 1 %; LYMPHOCYTES PERCENT MAN 6 % (20-50); MONOCYTES PERCENT MAN 3 % (2-8); SEG NEUTROPHILS PERCENT MAN 90 % (42-75)
[2022-08-04] MEDS: DULoxetine 30 MG Cap PO SCH (09:06)
[2022-08-04] MEDS: Saccharomyces Boulardii (Probiotic) 250 MG Cap PO SCH ×2 (09:06→21:06)
[2022-08-04] MEDS: Hydroxychloroquine 200 MG Tab PO SCH (09:06)
[2022-08-04] MEDS: Cholecalciferol (Vitamin D3) 25 MCG Tab PO SCH (09:06)
[2022-08-04] MEDS ORDERED: Potassium Chloride 10 MEQ Tab.ER PO ONE (11:30)
[2022-08-04] MEDS ORDERED: Glucagon,Human Recombinant 1 MG Vial IM PRN (16:40)
[2022-08-04] MEDS ORDERED: 50% Dextrose in Water 50 ML Syringe IVPUSH PRN (16:40)
[2022-08-04] MEDS: Insulin Lispro 100 Units/ML 3 ML Vial SUBCUT SCH (17:09)
[2022-08-04] MEDS: Melatonin 3 MG Tab PO SCH (21:07)
[2022-08-05] MEDS: Piperacillin/Tazobactam 3.375 GM in Sodium Chloride 0.9% 100 ML IV SCH ×4 (00:21→17:48)
[2022-08-05] MEDS: Pantoprazole 40 MG Tab.CR PO SCH ×2 (05:57→16:13)
[2022-08-05] MEDS: Levothyroxine 50 MCG Tab PO SCH (05:57)
[2022-08-05 06:37] LABS: HEMATOCRIT 33.2 % (37.0-47.0); HEMOGLOBIN 10.4 g/dL (12.0-16.0); MEAN CORPUSCULAR HEMOGLOBIN 30.8 pg (27.0-34.0); MEAN CORPUSCULAR HGB CONC 31.3 g/dL (33.0-35.0); MEAN CORPUSCULAR VOLUME 98.2 fL (80-100); PLATELET COUNT,PLT 134 10^3/uL (150-450); RED BLOOD CELL COUNT 3.38 10^6/uL (4.2-5.4); WHITE BLOOD CELL COUNT,WBC 8.7 10^3/uL (5.0-10.0)
[2022-08-05 06:46] LABS: LYMPHOCYTES PERCENT AUTO 9.4 % (20.5-50.1); MONOCYTES PERCENT AUTO 6.7 % (2-8); NEUTROPHILS PERCENT AUTO 83.9 % (42.2-75.2)
[2022-08-05 07:02] LABS: ALBUMIN 1.7 g/dL (3.4-5.0); ANION GAP 13.4 mEq/L (7-13); BILIRUBIN TOTAL 0.3 mg/dL (0.2-1.0); C-REACTIVE PROTEIN 4.7 mg/dL (0.0-0.9); CALCIUM 7.9 mg/dL (8.5-10.1); CREATININE 1.26 mg/dL (0.55-1.02); EST CRCL DRUG DOSING (CG) 32.25 mL/min; MAGNESIUM 1.6 mg/dL (1.8-2.4); POTASSIUM,K 3.4 mmol/L (3.5-5.1); PROTEIN TOTAL,TP 5.3 g/dL (6.4-8.2)
[2022-08-05 07:06] LABS: A/G RATIO 0.47
[2022-08-05 07:16] LABS: BAND PERCENT MAN 2 %; LYMPHOCYTES PERCENT MAN 13 % (20-50); MONOCYTES PERCENT MAN 4 % (2-8); SEG NEUTROPHILS PERCENT MAN 81 % (42-75)
[2022-08-05] MEDS ORDERED: Magnesium Sulfate/Water 2 GM in Premix Bag 1 BAG IV ONE (07:29)
[2022-08-05] MEDS: Hydrocortisone Sodium Succinate 100 MG/2 ML SDV IVPUSH SCH (08:51)
[2022-08-05] MEDS: Insulin Lispro 100 Units/ML 3 ML Vial SUBCUT SCH ×3 (08:55→17:50)
[2022-08-05] MEDS: Potassium Chloride 10 MEQ Tab.ER PO SCH ×2 (09:15→17:50)
[2022-08-05] MEDS: Saccharomyces Boulardii (Probiotic) 250 MG Cap PO SCH ×2 (09:16→21:39)
[2022-08-05] MEDS: DULoxetine 30 MG Cap PO SCH (09:16)
[2022-08-05] MEDS: Hydroxychloroquine 200 MG Tab PO SCH (09:17)
[2022-08-05] MEDS: Cholecalciferol (Vitamin D3) 25 MCG Tab PO SCH (09:17)
[2022-08-05] MEDS: Melatonin 3 MG Tab PO SCH (21:39)
[2022-08-06] MEDS: Piperacillin/Tazobactam 3.375 GM in Sodium Chloride 0.9% 100 ML IV SCH ×2 (01:12→05:44)
[2022-08-06] MEDS: Pantoprazole 40 MG Tab.CR PO SCH ×2 (05:47→14:59)
[2022-08-06] MEDS: Levothyroxine 50 MCG Tab PO SCH (05:47)
[2022-08-06 06:40] LABS: HEMATOCRIT 35.7 % (37.0-47.0); HEMOGLOBIN 11.3 g/dL (12.0-16.0); MEAN CORPUSCULAR HEMOGLOBIN 31.1 pg (27.0-34.0); MEAN CORPUSCULAR HGB CONC 31.7 g/dL (33.0-35.0); MEAN CORPUSCULAR VOLUME 98.3 fL (80-100); PLATELET COUNT,PLT 143 10^3/uL (150-450); RED BLOOD CELL COUNT 3.63 10^6/uL (4.2-5.4); WHITE BLOOD CELL COUNT,WBC 8.8 10^3/uL (5.0-10.0)
[2022-08-06 06:42] LABS: EOSINOPHILS PERCENT AUTO 0.5 % (1.0-3.0); LYMPHOCYTES PERCENT AUTO 14.3 % (20.5-50.1); MONOCYTES PERCENT AUTO 7.5 % (2-8); NEUTROPHILS PERCENT AUTO 77.7 % (42.2-75.2)
[2022-08-06 06:59] LABS: ALBUMIN 1.7 g/dL (3.4-5.0); BILIRUBIN TOTAL 0.3 mg/dL (0.2-1.0); C-REACTIVE PROTEIN 2.2 mg/dL (0.0-0.9); CALCIUM 7.7 mg/dL (8.5-10.1); CREATININE 1.18 mg/dL (0.55-1.02); EST CRCL DRUG DOSING (CG) 34.43 mL/min; MAGNESIUM 1.6 mg/dL (1.8-2.4); PROTEIN TOTAL,TP 5.1 g/dL (6.4-8.2)
[2022-08-06 07:00] LABS: A/G RATIO 0.5
[2022-08-06 07:19] LABS: BAND PERCENT MAN 1 %; EOSINOPHILS PERCENT MAN 2 % (1-3); LYMPHOCYTES PERCENT MAN 17 % (20-50); METAMYELOCYTE PERCENT MAN 2; MONOCYTES PERCENT MAN 6 % (2-8); MYELOCYTE PERCENT MAN 1; SEG NEUTROPHILS PERCENT MAN 71 % (42-75)
[2022-08-06 07:20] LABS: ATYPICAL LYMPHOCYTES FEW; PLATELET COUNT ESTIMATE DECREASED
[2022-08-06] MEDS: DULoxetine 30 MG Cap PO SCH (08:01)
[2022-08-06] MEDS: Hydroxychloroquine 200 MG Tab PO SCH (08:02)
[2022-08-06] MEDS: Saccharomyces Boulardii (Probiotic) 250 MG Cap PO SCH ×2 (08:02→20:36)
[2022-08-06] MEDS: Cholecalciferol (Vitamin D3) 25 MCG Tab PO SCH (08:02)
[2022-08-06] MEDS: Potassium Chloride 10 MEQ Tab.ER PO SCH ×2 (08:03→17:03)
[2022-08-06] MEDS: Insulin Lispro 100 Units/ML 3 ML Vial SUBCUT SCH (08:03)
[2022-08-06] MEDS: Hydrocortisone Sodium Succinate 100 MG/2 ML SDV IVPUSH SCH (08:05)
[2022-08-06] MEDS ORDERED: Magnesium Sulfate/Water 4 GM in Premix Bag 1 BAG IV ONE (09:00)
[2022-08-06] MEDS: Magnesium Oxide 400 MG Tab PO SCH (17:03)
[2022-08-06] MEDS: Melatonin 3 MG Tab PO SCH (20:36)
[2022-08-07] MEDS: Pantoprazole 40 MG Tab.CR PO SCH (06:17)
[2022-08-07] MEDS: Levothyroxine 50 MCG Tab PO SCH (06:18)
[2022-08-07 06:30] LABS: HEMATOCRIT 38.5 % (37.0-47.0); MEAN CORPUSCULAR HEMOGLOBIN 30.8 pg (27.0-34.0); MEAN CORPUSCULAR HGB CONC 31.2 g/dL (33.0-35.0); MEAN CORPUSCULAR VOLUME 98.7 fL (80-100); PLATELET COUNT,PLT 139 10^3/uL (150-450); WHITE BLOOD CELL COUNT,WBC 13.5 10^3/uL (5.0-10.0)
[2022-08-07 06:32] LABS: EOSINOPHILS PERCENT AUTO 0.7 % (1.0-3.0); LYMPHOCYTES PERCENT AUTO 11.6 % (20.5-50.1); MONOCYTES PERCENT AUTO 5.9 % (2-8); NEUTROPHILS PERCENT AUTO 81.8 % (42.2-75.2)
[2022-08-07 06:54] LABS: A/G RATIO 0.56; BILIRUBIN TOTAL 0.3 mg/dL (0.2-1.0); BUN/CREATININE RATIO 38.8 (No establ ref range); C-REACTIVE PROTEIN 1.1 mg/dL (0.0-0.9); CALCIUM 8.1 mg/dL (8.5-10.1); CREATININE 1.03 mg/dL (0.55-1.02); EST CRCL DRUG DOSING (CG) 39.45 mL/min; PROTEIN TOTAL,TP 5.6 g/dL (6.4-8.2)
[2022-08-07 07:10] LABS: LYMPHOCYTES PERCENT MAN 14 % (20-50); MONOCYTES PERCENT MAN 8 % (2-8); SEG NEUTROPHILS PERCENT MAN 78 % (42-75)
[2022-08-07] MEDS: Cholecalciferol (Vitamin D3) 25 MCG Tab PO SCH (08:29)
[2022-08-07] MEDS: DULoxetine 30 MG Cap PO SCH (08:29)
[2022-08-07] MEDS: Magnesium Oxide 400 MG Tab PO SCH (08:30)
[2022-08-07] MEDS: Hydroxychloroquine 200 MG Tab PO SCH (08:30)
[2022-08-07] MEDS: Saccharomyces Boulardii (Probiotic) 250 MG Cap PO SCH (08:31)
[2022-08-07] MEDS: Potassium Chloride 10 MEQ Tab.ER PO SCH (08:33)
== END 2022-08-07 10:46 | disposition swing bed (61) | DRG 871 ==
LOC: DL.ED 22:18 → DL.MS 08-02 03:05 → UNDOADMIN 08-02 03:05
PROVIDERS: ADMIT Internal Medicine; ATTEND Internal Medicine
PROC: 05HN33Z Insertion of Infusion Device into Left Internal Jugular Vein, Percutaneous Approach (ICD-10-PCS; principal; 2022-08-02)
PROC: B544ZZA Ultrasonography of Left Jugular Veins, Guidance (ICD-10-PCS; 2022-08-02)
PROC: 3E033XZ Introduction of Vasopressor into Peripheral Vein, Percutaneous Approach (ICD-10-PCS; 2022-08-02)
DX: A41.9 Sepsis, unspecified organism (principal); A41.89 Other specified sepsis; R65.21 Severe sepsis with septic shock; N17.9 Acute kidney failure, unspecified; W18.30XA Fall on same level, unspecified, initial encounter; N39.0 Urinary tract infection, site not specified; E87.1 Hypo-osmolality and hyponatremia; N13.2 Hydronephrosis with renal and ureteral calculous obstruction; E03.9 Hypothyroidism, unspecified; M32.9 Systemic lupus erythematosus, unspecified; F32.A Depression, unspecified; M35.00 Sjogren syndrome, unspecified; M81.0 Age-related osteoporosis without current pathological fracture; N18.30 Chronic kidney disease, stage 3 unspecified; D69.6 Thrombocytopenia, unspecified; E55.9 Vitamin D deficiency, unspecified; E87.8 Other disorders of electrolyte and fluid balance, not elsewhere classified; R79.82 Elevated C-reactive protein (CRP); E66.9 Obesity, unspecified; E88.09 Other disorders of plasma-protein metabolism, not elsewhere classified; R73.9 Hyperglycemia, unspecified; Z79.2 Long term (current) use of antibiotics; Z79.899 Other long term (current) drug therapy; Z68.30 Body mass index [BMI] 30.0-30.9, adult
CPT/HCPCS: 36415; 70450; 71045; 72125; 72128; 72131; 73600-LT; 80053; 80202; 81001; 82306; 82550; 82947; 83605; 83735; 84145; 84443; 84484; 85025; 85651; 86140; 86160; 86225; 87040; 87077; 87086; 93005; 94010; 97161-GP; 97165-GO; 97530-GO; 97530-GP; 99232; 99238; A9270-GY; C1751; J0461; J1170; J1720; J2405; J2543; J3370; J3475; J3490; J7030; J7050; J7120

== ENCOUNTER 2022-08-07 10:09 | Inpatient (IN) | payer MEDICARE ==
[~2022-08-07 10:09] MED LIST: Acetaminophen 325 MG Tab PO PRN; Acetaminophen/oxyCODONE 325-5 MG Tab PO PRN; Albuterol/Ipratropium 3.0-0.5 MG/3 ML Neb Soln NEB PRN; Calcium Carbonate 500 MG Tab.Chew PO PRN; HYDROmorphone 0.5 MG/0.5 ML Syringe IVPUSH PRN; Magnesium Hydroxide 400 MG/5 ML Susp 30 ML Cup PO PRN; Polyethylene Glycol 3350 Powder 17 GM Packet PO PRN; Sennosides/Docusate Sodium 50-8.6 MG Tab PO PRN; Sodium Chloride 0.9% 10 ML Syringe FLUSH PRN
[2022-08-07] MEDS: Pantoprazole 40 MG Tab.CR PO SCH (15:04)
[2022-08-07] MEDS: Magnesium Oxide 400 MG Tab PO SCH (17:06)
[2022-08-07] MEDS: Melatonin 3 MG Tab PO SCH (20:56)
[2022-08-08] MEDS: Pantoprazole 40 MG Tab.CR PO SCH ×2 (06:02→16:32)
[2022-08-08] MEDS: Levothyroxine 50 MCG Tab PO SCH (06:02)
[2022-08-08] MEDS: Cholecalciferol (Vitamin D3) 25 MCG Tab PO SCH (08:25)
[2022-08-08] MEDS: DULoxetine 30 MG Cap PO SCH (08:25)
[2022-08-08] MEDS: Hydroxychloroquine 200 MG Tab PO SCH (08:26)
[2022-08-08] MEDS: Magnesium Oxide 400 MG Tab PO SCH ×2 (08:26→17:31)
[2022-08-08] MEDS: Melatonin 3 MG Tab PO SCH (21:35)
[2022-08-09] MEDS: Pantoprazole 40 MG Tab.CR PO SCH ×2 (05:48→16:00)
[2022-08-09] MEDS: Levothyroxine 50 MCG Tab PO SCH (05:48)
[2022-08-09] MEDS: Cholecalciferol (Vitamin D3) 25 MCG Tab PO SCH (08:28)
[2022-08-09] MEDS: DULoxetine 30 MG Cap PO SCH (08:28)
[2022-08-09] MEDS: Magnesium Oxide 400 MG Tab PO SCH ×2 (08:28→18:16)
[2022-08-09] MEDS: Hydroxychloroquine 200 MG Tab PO SCH (08:28)
[2022-08-09] MEDS: Melatonin 3 MG Tab PO SCH (21:18)
[2022-08-10] MEDS: Levothyroxine 50 MCG Tab PO SCH (05:44)
[2022-08-10] MEDS: Pantoprazole 40 MG Tab.CR PO SCH ×2 (05:44→16:19)
[2022-08-10] MEDS: Cholecalciferol (Vitamin D3) 25 MCG Tab PO SCH (08:30)
[2022-08-10] MEDS: Magnesium Oxide 400 MG Tab PO SCH ×2 (08:30→17:06)
[2022-08-10] MEDS: Hydroxychloroquine 200 MG Tab PO SCH (08:30)
[2022-08-10] MEDS: DULoxetine 30 MG Cap PO SCH (08:30)
[2022-08-10] MEDS: Melatonin 3 MG Tab PO SCH (21:18)
[2022-08-11] MEDS: Pantoprazole 40 MG Tab.CR PO SCH ×2 (05:35→16:09)
[2022-08-11] MEDS: Levothyroxine 50 MCG Tab PO SCH (05:35)
[2022-08-11] MEDS: Hydroxychloroquine 200 MG Tab PO SCH (08:22)
[2022-08-11] MEDS: Cholecalciferol (Vitamin D3) 25 MCG Tab PO SCH (08:23)
[2022-08-11] MEDS: Magnesium Oxide 400 MG Tab PO SCH ×2 (08:23→17:21)
[2022-08-11] MEDS: DULoxetine 30 MG Cap PO SCH (08:23)
[2022-08-11] MEDS ORDERED: Non-Formulary Medication 1 Each (Calcium Carbonate [Calcium Carbonate] 500 MG Tablet) PO PRN (09:44)
[2022-08-11] MEDS ORDERED: Oxybutynin 5 MG Tab.ER PO ONE (09:47)
[2022-08-11] MEDS: predniSONE 5 MG Tab PO SCH (11:18)
[2022-08-11] MEDS: Oxybutynin 5 MG Tab.ER PO SCH (20:43)
[2022-08-11] MEDS: Melatonin 3 MG Tab PO SCH (20:43)
[2022-08-12] MEDS: Levothyroxine 50 MCG Tab PO SCH (05:21)
[2022-08-12] MEDS: Pantoprazole 40 MG Tab.CR PO SCH ×2 (05:21→15:42)
[2022-08-12 05:45] LABS: HEMATOCRIT 36.8 % (37.0-47.0); HEMOGLOBIN 11.4 g/dL (12.0-16.0); MEAN CORPUSCULAR HEMOGLOBIN 31.1 pg (27.0-34.0); MEAN CORPUSCULAR VOLUME 100.5 fL (80-100); PLATELET COUNT,PLT 228 10^3/uL (150-450); RED BLOOD CELL COUNT 3.66 10^6/uL (4.2-5.4); WHITE BLOOD CELL COUNT,WBC 12.2 10^3/uL (5.0-10.0)
[2022-08-12 05:54] LABS: BASOPHILS PERCENT AUTO 0.2 % (0.0-1.0); LYMPHOCYTES PERCENT AUTO 10.8 % (20.5-50.1); MONOCYTES PERCENT AUTO 7.6 % (2-8); NEUTROPHILS PERCENT AUTO 80.4 % (42.2-75.2)
[2022-08-12 06:03] LABS: ALBUMIN 2.5 g/dL (3.4-5.0); ANION GAP 10.1 mEq/L (7-13); BAND PERCENT MAN 5 %; BILIRUBIN TOTAL 0.3 mg/dL (0.2-1.0); BUN/CREATININE RATIO 45.8 (No establ ref range); CALCIUM 8.9 mg/dL (8.5-10.1); CREATININE 1.18 mg/dL (0.55-1.02); EST CRCL DRUG DOSING (CG) 34.43 mL/min; LYMPHOCYTES PERCENT MAN 15 % (20-50); MAGNESIUM 1.9 mg/dL (1.8-2.4); MONOCYTES PERCENT MAN 5 % (2-8); POTASSIUM,K 4.1 mmol/L (3.5-5.1); PROTEIN TOTAL,TP 6.4 g/dL (6.4-8.2); SEG NEUTROPHILS PERCENT MAN 75 % (42-75)
[2022-08-12 06:04] LABS: A/G RATIO 0.64
[2022-08-12] MEDS ORDERED: Sodium Chloride 0.9% 1,000 ML IV SCH (07:15)
[2022-08-12] MEDS: DULoxetine 30 MG Cap PO SCH (08:10)
[2022-08-12] MEDS: Hydroxychloroquine 200 MG Tab PO SCH (08:10)
[2022-08-12] MEDS: predniSONE 5 MG Tab PO SCH (08:11)
[2022-08-12] MEDS: Magnesium Oxide 400 MG Tab PO SCH ×2 (08:11→17:25)
[2022-08-12] MEDS: Cholecalciferol (Vitamin D3) 25 MCG Tab PO SCH (08:11)
[2022-08-12] MEDS ORDERED: Cholecalciferol (Vitamin D3) 25 MCG Tab PO SCH (09:00)
[2022-08-12] MEDS: Midodrine 2.5 MG Tab PO PRN (15:42)
[2022-08-12] MEDS: Oxybutynin 5 MG Tab.ER PO SCH (20:46)
[2022-08-12] MEDS: Melatonin 3 MG Tab PO SCH (20:46)
[2022-08-13] MEDS: Pantoprazole 40 MG Tab.CR PO SCH ×2 (05:43→16:01)
[2022-08-13] MEDS: Levothyroxine 50 MCG Tab PO SCH (05:43)
[2022-08-13] MEDS: DULoxetine 30 MG Cap PO SCH (08:26)
[2022-08-13] MEDS: predniSONE 5 MG Tab PO SCH (08:26)
[2022-08-13] MEDS: Cholecalciferol (Vitamin D3) 25 MCG Tab PO SCH (08:27)
[2022-08-13] MEDS: Magnesium Oxide 400 MG Tab PO SCH ×2 (08:27→17:28)
[2022-08-13] MEDS: Hydroxychloroquine 200 MG Tab PO SCH (08:27)
[2022-08-13] MEDS ORDERED: Lactulose Soln 10 GM/15 ML 30 ML UD Cup PO PRN (09:55)
[2022-08-13] MEDS: Melatonin 3 MG Tab PO SCH (20:57)
[2022-08-13] MEDS: Oxybutynin 5 MG Tab.ER PO SCH (20:57)
[2022-08-14] MEDS: Levothyroxine 50 MCG Tab PO SCH (06:10)
[2022-08-14] MEDS: Pantoprazole 40 MG Tab.CR PO SCH ×2 (06:10→16:41)
[2022-08-14] MEDS: Magnesium Oxide 400 MG Tab PO SCH ×2 (09:00→17:22)
[2022-08-14] MEDS: DULoxetine 30 MG Cap PO SCH (09:00)
[2022-08-14] MEDS: predniSONE 5 MG Tab PO SCH (09:00)
[2022-08-14] MEDS: Hydroxychloroquine 200 MG Tab PO SCH (09:00)
[2022-08-14] MEDS: Cholecalciferol (Vitamin D3) 25 MCG Tab PO SCH (09:00)
[2022-08-14 13:41] LABS: APPEARANCE,URINE CLOUDY (CLEAR); BILIRUBIN,URINE NEGATIVE (NEGATIVE); COLOR,URINE YELLOW (YELLOW); GLUCOSE,URINE NEGATIVE (NEGATIVE); KETONES,URINE NEGATIVE (NEGATIVE); LEUKOCYTE ESTERASE,URINE LARGE (NEGATIVE); NITRITE,URINE POSITIVE (NEGATIVE); OCCULT BLOOD,URINE MODERATE (NEGATIVE); PH,URINE 5.5 (5.0-9.0); PROTEIN,URINE 100 (NEGATIVE); UROBILINOGEN,URINE 0.2 mg/dL (0.2-1.0)
[2022-08-14 13:46] LABS: AMORPHOUS SEDIMENT,URINE FEW /HPF (NOT SEEN); BACTERIA,URINE MODERATE /HPF (0-FEW/HPF); EPITHELIAL CELLS,URINE FEW /HPF (NOT SEEN); MUCUS,URINE RARE /LPF (NOT SEEN); WBC,URINE PACKED /HPF (0-5/HPF)
[2022-08-14] MEDS ORDERED: Ciprofloxacin 500 MG Tab PO ONE (14:05)
[2022-08-14] MEDS ORDERED: Saccharomyces Boulardii (Probiotic) 250 MG Cap PO SCH (21:00)
[2022-08-14] MEDS: Melatonin 3 MG Tab PO SCH (21:08)
[2022-08-14] MEDS: Oxybutynin 5 MG Tab.ER PO SCH (21:08)
[2022-08-15] MEDS: Pantoprazole 40 MG Tab.CR PO SCH ×2 (05:31→15:35)
[2022-08-15] MEDS: Levothyroxine 50 MCG Tab PO SCH (05:31)
[2022-08-15] MEDS: Cholecalciferol (Vitamin D3) 25 MCG Tab PO SCH (10:04)
[2022-08-15] MEDS: Ciprofloxacin 500 MG Tab PO SCH (10:04)
[2022-08-15] MEDS: DULoxetine 30 MG Cap PO SCH (10:04)
[2022-08-15] MEDS: Magnesium Oxide 400 MG Tab PO SCH ×2 (10:04→17:26)
[2022-08-15] MEDS: predniSONE 5 MG Tab PO SCH (10:04)
[2022-08-15] MEDS: Hydroxychloroquine 200 MG Tab PO SCH (10:04)
[2022-08-15] MEDS: Saccharomyces Boulardii (Probiotic) 250 MG Cap PO SCH (10:05)
[2022-08-15] MEDS: Midodrine 2.5 MG Tab PO PRN (20:13)
[2022-08-15] MEDS: Oxybutynin 5 MG Tab.ER PO SCH (20:59)
[2022-08-15] MEDS: Melatonin 3 MG Tab PO SCH (20:59)
[2022-08-16] MEDS: Pantoprazole 40 MG Tab.CR PO SCH (05:46)
[2022-08-16] MEDS: Levothyroxine 50 MCG Tab PO SCH (05:46)
[2022-08-16] MEDS: Hydroxychloroquine 200 MG Tab PO SCH (07:59)
[2022-08-16] MEDS: predniSONE 5 MG Tab PO SCH (07:59)
[2022-08-16] MEDS: Saccharomyces Boulardii (Probiotic) 250 MG Cap PO SCH (07:59)
[2022-08-16] MEDS: Ciprofloxacin 500 MG Tab PO SCH (07:59)
[2022-08-16] MEDS: Magnesium Oxide 400 MG Tab PO SCH (07:59)
[2022-08-16] MEDS: Cholecalciferol (Vitamin D3) 25 MCG Tab PO SCH (07:59)
[2022-08-16] MEDS: DULoxetine 30 MG Cap PO SCH (07:59)
== END 2022-08-16 10:04 | disposition other institution (70) | DRG 948 ==
LOC: DL.MS 10:09
PROVIDERS: ADMIT Internal Medicine; ATTEND Internal Medicine
DX: R53.1 Weakness (principal); N17.9 Acute kidney failure, unspecified; N39.0 Urinary tract infection, site not specified; E44.0 Moderate protein-calorie malnutrition; Z68.1 Body mass index [BMI] 19.9 or less, adult; E03.9 Hypothyroidism, unspecified; D69.6 Thrombocytopenia, unspecified; E55.9 Vitamin D deficiency, unspecified; Z66 Do not resuscitate; N18.30 Chronic kidney disease, stage 3 unspecified; M35.00 Sjogren syndrome, unspecified; E66.9 Obesity, unspecified; R26.9 Unspecified abnormalities of gait and mobility; M81.0 Age-related osteoporosis without current pathological fracture; Z79.890 Hormone replacement therapy; Z79.899 Other long term (current) drug therapy; Z79.52 Long term (current) use of systemic steroids
CPT/HCPCS: 36415; 80053; 81001; 83735; 85025; 87086; 87088; 87186; 97110-GO; 97110-GP; 97161-GP; 97165-GO; 97530-GO; 97530-GP; 97535-GO; A9270-GY; J7030; J7512

== ENCOUNTER 2023-06-02 14:15 | Inpatient (IN) | payer MEDICARE ==
[2023-06-02 15:06] LABS: BASOPHILS PERCENT AUTO 0.2 % (0.0-1.0); EOSINOPHILS PERCENT AUTO 0.8 % (1.0-3.0); HEMATOCRIT 40.5 % (37.0-47.0); HEMOGLOBIN 12.7 g/dL (12.0-16.0); LYMPHOCYTES PERCENT AUTO 3.8 % (20.5-50.1); MEAN CORPUSCULAR HEMOGLOBIN 32.2 pg (27.0-34.0); MEAN CORPUSCULAR HGB CONC 31.4 g/dL (33.0-35.0); MEAN CORPUSCULAR VOLUME 102.8 fL (80-100); MONOCYTES PERCENT AUTO 4.4 % (2-8); NEUTROPHILS PERCENT AUTO 90.8 % (42.2-75.2); PLATELET COUNT,PLT 150 10^3/uL (150-450); RED BLOOD CELL COUNT 3.94 10^6/uL (4.2-5.4); WHITE BLOOD CELL COUNT,WBC 12.8 10^3/uL (5.0-10.0)
[2023-06-02 15:29] LABS: LACTIC ACID 1.5 mmol/L (0.4-2.0)
[2023-06-02 15:35] LABS: ALBUMIN 3.3 g/dL (3.4-5.0); ANION GAP 11.2 mEq/L (7-13); BILIRUBIN TOTAL 0.5 mg/dL (0.2-1.0); BUN/CREATININE RATIO 25.6 (No establ ref range); C-REACTIVE PROTEIN 1.53 ng/dL (<=0.50); CALCIUM 9.3 mg/dL (8.5-10.1); CREATININE 1.29 mg/dL (0.55-1.02); EST CRCL DRUG DOSING (CG) 29.56 mL/min; POTASSIUM,K 5.2 mmol/L (3.5-5.1); PROTEIN TOTAL,TP 7.8 g/dL (6.4-8.2)
[2023-06-02 15:37] LABS: A/G RATIO 0.73
[2023-06-02 15:54] LABS: CORONAVIRUS COVID-19 NAA NEGATIVE (NEGATIVE); INFLUENZA A NAA NEGATIVE (NEGATIVE); INFLUENZA B NAA NEGATIVE (NEGATIVE); RESPIRATORY SYNCYTIAL VIR NAA NEGATIVE (NEGATIVE)
[2023-06-02] MEDS: Sodium Chloride 0.9% 1,000 ML IV ONE (16:13)
[2023-06-02] MEDS: Morphine 4 MG/ML Syringe IVPUSH ONE (16:27)
[2023-06-02 16:57] LABS: APPEARANCE,URINE CLOUDY (CLEAR); BILIRUBIN,URINE NEGATIVE (NEGATIVE); COLOR,URINE YELLOW (YELLOW); GLUCOSE,URINE NEGATIVE (NEGATIVE); KETONES,URINE NEGATIVE (NEGATIVE); LEUKOCYTE ESTERASE,URINE LARGE (NEGATIVE); NITRITE,URINE NEGATIVE (NEGATIVE); OCCULT BLOOD,URINE MODERATE (NEGATIVE); PROTEIN,URINE NEGATIVE (NEGATIVE); UROBILINOGEN,URINE 0.2 mg/dL (0.2-1.0)
[2023-06-02 17:11] LABS: BACTERIA,URINE MANY /HPF (0-FEW/HPF); EPITHELIAL CELLS,URINE MODERATE /HPF (NOT SEEN)
[2023-06-02 17:13] LABS: MUCUS,URINE FEW /LPF (NOT SEEN); WBC,URINE >100 /HPF (0-5/HPF)
[2023-06-02] MEDS: cefTRIAXone 1 GM Vial IVPUSH ONE (17:31)
[2023-06-02] MEDS: Cyclobenzaprine 10 MG Tab PO ONE (17:32)
[2023-06-02] MEDS ORDERED: HYDROmorphone 0.5 MG/0.5 ML Syringe IVPUSH PRN (18:19)
[2023-06-02] MEDS ORDERED: Albuterol/Ipratropium 3.0-0.5 MG/3 ML Neb Soln NEB PRN (18:19)
[2023-06-02] MEDS ORDERED: Naloxone 2 MG/2 ML Syringe IVPUSH PRN (18:19)
[2023-06-02] MEDS ORDERED: Magnesium Hydroxide 400 MG/5 ML Susp 30 ML Cup PO PRN ×2 (18:19→19:35)
[2023-06-02] MEDS ORDERED: Acetaminophen 325 MG Tab PO PRN ×2 (18:19→19:35)
[2023-06-02] MEDS ORDERED: Triamcinolone Acetonide 0.1% Crm 15 GM Tube TOP PRN (19:35)
[2023-06-02] MEDS ORDERED: Diclofenac Sodium 1% Gel 100 GM Tube TOP PRN (19:35)
[2023-06-02] MEDS ORDERED: Calcium Carbonate 500 MG Tab.Chew PO PRN (20:04)
[2023-06-02 20:10] LABS: T4 FREE 1.13 ng/dL (0.76-1.46); TSH ULTRASENSITIVE 1.83 uIU/mL (0.36-3.74)
[2023-06-02] MEDS: Nystatin Topical Powder 60 GM Bottle ONE (22:20)
[2023-06-02] MEDS: Bacitracin/Neomycin/Polymyxin B Oint 28.4 GM Tube TOP SCH (22:21)
[2023-06-02] MEDS: Nystatin Topical Powder 60 GM Bottle TOP SCH (22:22)
[2023-06-02] MEDS: Nystatin Topical Powder 30 GM Bottle TOP SCH (22:34)
[2023-06-02] MEDS: Acetaminophen/oxyCODONE 325-5 MG Tab PO PRN (23:57)
[2023-06-03] MEDS: Levothyroxine 50 MCG Tab PO SCH (05:17)
[2023-06-03] MEDS: Omeprazole 20 MG Cap.CR PO SCH (05:17)
[2023-06-03 06:20] LABS: BASOPHILS PERCENT AUTO 0.3 % (0.0-1.0); EOSINOPHILS PERCENT AUTO 2.3 % (1.0-3.0); HEMATOCRIT 39.5 % (37.0-47.0); HEMOGLOBIN 11.8 g/dL (12.0-16.0); LYMPHOCYTES PERCENT AUTO 15.1 % (20.5-50.1); MEAN CORPUSCULAR HEMOGLOBIN 31.6 pg (27.0-34.0); MEAN CORPUSCULAR HGB CONC 29.9 g/dL (33.0-35.0); MEAN CORPUSCULAR VOLUME 105.6 fL (80-100); MONOCYTES PERCENT AUTO 9.3 % (2-8); PLATELET COUNT,PLT 159 10^3/uL (150-450); RED BLOOD CELL COUNT 3.74 10^6/uL (4.2-5.4); WHITE BLOOD CELL COUNT,WBC 7.9 10^3/uL (5.0-10.0)
[2023-06-03] MEDS: Melatonin 3 MG Tab PO SCH ×2 (08:44→20:06)
[2023-06-03] MEDS: predniSONE 5 MG Tab PO SCH (08:44)
[2023-06-03] MEDS: DULoxetine 30 MG Cap PO SCH (08:44)
[2023-06-03] MEDS: Cholecalciferol (Vitamin D3) 25 MCG Tab PO SCH (08:44)
[2023-06-03] MEDS: Cyclobenzaprine 10 MG Tab PO ONE (11:54)
[2023-06-03] MEDS: Cyclobenzaprine 10 MG Tab PO SCH (20:05)
[2023-06-03] MEDS: cefTRIAXone 1 GM Vial IVPUSH ONE (20:06)
[2023-06-04] MEDS: Ondansetron 4 MG/2 ML SDV IVPUSH PRN (05:09)
[2023-06-04 06:22] LABS: BASOPHILS PERCENT AUTO 0.3 % (0.0-1.0); EOSINOPHILS PERCENT AUTO 3.7 % (1.0-3.0); HEMATOCRIT 38.9 % (37.0-47.0); HEMOGLOBIN 11.5 g/dL (12.0-16.0); LYMPHOCYTES PERCENT AUTO 16.1 % (20.5-50.1); MEAN CORPUSCULAR HEMOGLOBIN 31.3 pg (27.0-34.0); MEAN CORPUSCULAR HGB CONC 29.6 g/dL (33.0-35.0); MEAN CORPUSCULAR VOLUME 105.7 fL (80-100); MONOCYTES PERCENT AUTO 9.3 % (2-8); NEUTROPHILS PERCENT AUTO 70.6 % (42.2-75.2); PLATELET COUNT,PLT 152 10^3/uL (150-450); RED BLOOD CELL COUNT 3.68 10^6/uL (4.2-5.4); WHITE BLOOD CELL COUNT,WBC 6.7 10^3/uL (5.0-10.0)
[2023-06-04 06:51] LABS: ALBUMIN 2.8 g/dL (3.4-5.0); ANION GAP 5.1 mEq/L (7-13); BILIRUBIN TOTAL 0.4 mg/dL (0.2-1.0); BUN/CREATININE RATIO 19.1 (No establ ref range); CALCIUM 8.6 mg/dL (8.5-10.1); CREATININE 1.31 mg/dL (0.55-1.02); EST CRCL DRUG DOSING (CG) 29.11 mL/min; POTASSIUM,K 4.1 mmol/L (3.5-5.1); PROTEIN TOTAL,TP 7.1 g/dL (6.4-8.2)
[2023-06-04 06:57] LABS: A/G RATIO 0.65
[2023-06-04] MEDS ORDERED: Enoxaparin 40 MG/0.4 ML Syringe SUBCUT ONE (09:16)
[2023-06-04] MEDS: Enoxaparin 30 MG/0.3 ML Syringe SUBCUT ONE (10:23)
[2023-06-04] MEDS: cefTRIAXone 1 GM Vial IVPUSH SCH (20:24)
[2023-06-04] MEDS: Enoxaparin 30 MG/0.3 ML Syringe SUBCUT SCH (20:32)
[2023-06-05 06:31] LABS: BASOPHILS PERCENT AUTO 0.3 % (0.0-1.0); EOSINOPHILS PERCENT AUTO 4.1 % (1.0-3.0); HEMATOCRIT 38.4 % (37.0-47.0); HEMOGLOBIN 11.4 g/dL (12.0-16.0); LYMPHOCYTES PERCENT AUTO 16.9 % (20.5-50.1); MEAN CORPUSCULAR HEMOGLOBIN 31.3 pg (27.0-34.0); MEAN CORPUSCULAR HGB CONC 29.7 g/dL (33.0-35.0); MEAN CORPUSCULAR VOLUME 105.5 fL (80-100); MONOCYTES PERCENT AUTO 9.2 % (2-8); NEUTROPHILS PERCENT AUTO 69.5 % (42.2-75.2); PLATELET COUNT,PLT 149 10^3/uL (150-450); RED BLOOD CELL COUNT 3.64 10^6/uL (4.2-5.4); WHITE BLOOD CELL COUNT,WBC 6.3 10^3/uL (5.0-10.0)
[2023-06-05 06:53] LABS: A/G RATIO 0.64; ALBUMIN 2.8 g/dL (3.4-5.0); ANION GAP 9.6 mEq/L (7-13); BILIRUBIN TOTAL 0.3 mg/dL (0.2-1.0); BUN/CREATININE RATIO 18.5 (No establ ref range); C-REACTIVE PROTEIN 4.4 ng/dL (<=0.50); CALCIUM 8.8 mg/dL (8.5-10.1); CREATININE 1.46 mg/dL (0.55-1.02); EST CRCL DRUG DOSING (CG) 26.12 mL/min; MAGNESIUM 1.9 mg/dL (1.8-2.4); POTASSIUM,K 4.6 mmol/L (3.5-5.1); PROTEIN TOTAL,TP 7.2 g/dL (6.4-8.2)
[2023-06-05] MEDS ORDERED: Bisacodyl 10 MG Supp RECTAL PRN (07:28)
[2023-06-05] MEDS: Magnesium Hydroxide 400 MG/5 ML Susp 30 ML Cup PO PRN (07:52)
[2023-06-05] MEDS: Polyethylene Glycol 3350 Powder 17 GM Packet PO PRN (07:52)
[2023-06-05] MEDS: Temazepam 15 MG Cap PO PRN (20:31)
[2023-06-06 06:34] LABS: BASOPHILS PERCENT AUTO 0.2 % (0.0-1.0); EOSINOPHILS PERCENT AUTO 4.3 % (1.0-3.0); HEMATOCRIT 38.7 % (37.0-47.0); HEMOGLOBIN 11.6 g/dL (12.0-16.0); LYMPHOCYTES PERCENT AUTO 18.7 % (20.5-50.1); MEAN CORPUSCULAR HEMOGLOBIN 31.7 pg (27.0-34.0); MEAN CORPUSCULAR VOLUME 105.7 fL (80-100); MONOCYTES PERCENT AUTO 8.9 % (2-8); NEUTROPHILS PERCENT AUTO 67.9 % (42.2-75.2); PLATELET COUNT,PLT 160 10^3/uL (150-450); RED BLOOD CELL COUNT 3.66 10^6/uL (4.2-5.4); WHITE BLOOD CELL COUNT,WBC 5.9 10^3/uL (5.0-10.0)
[2023-06-06 06:47] LABS: ALBUMIN 2.9 g/dL (3.4-5.0); ANION GAP 9.9 mEq/L (7-13); BILIRUBIN TOTAL 0.3 mg/dL (0.2-1.0); BUN/CREATININE RATIO 22.5 (No establ ref range); C-REACTIVE PROTEIN 2.97 ng/dL (<=0.50); CREATININE 1.29 mg/dL (0.55-1.02); EST CRCL DRUG DOSING (CG) 29.56 mL/min; MAGNESIUM 2.2 mg/dL (1.8-2.4); POTASSIUM,K 4.9 mmol/L (3.5-5.1); PROTEIN TOTAL,TP 7.3 g/dL (6.4-8.2)
[2023-06-06 06:48] LABS: A/G RATIO 0.66
[2023-06-07] MEDS: Sennosides/Docusate Sodium 50-8.6 MG Tab PO PRN (09:09)
[2023-06-08] MEDS: Lactulose Soln 10 GM/15 ML 30 ML UD Cup PO ONE (10:08)
[2023-06-08] MEDS: Benzocaine/Docusate Sodium 20-283 MG/5 ML Enema RECTAL ONE (10:08)
[2023-06-08] MEDS: Midodrine 5 MG Tab PO ONE (20:56)
[2023-06-08] MEDS: Sodium Chloride 0.9% 500 ML IV SCH (21:00)
[2023-06-08] MEDS: Sodium Chloride 0.9% 1,000 ML IV SCH (22:48)
[2023-06-09] MEDS ORDERED: Midodrine 5 MG Tab PO PRN (06:00)
[2023-06-09 06:53] LABS: BASOPHILS PERCENT AUTO 0.1 % (0.0-1.0); EOSINOPHILS PERCENT AUTO 3.6 % (1.0-3.0); HEMATOCRIT 38.2 % (37.0-47.0); HEMOGLOBIN 11.5 g/dL (12.0-16.0); LYMPHOCYTES PERCENT AUTO 19.4 % (20.5-50.1); MEAN CORPUSCULAR HEMOGLOBIN 31.6 pg (27.0-34.0); MEAN CORPUSCULAR HGB CONC 30.1 g/dL (33.0-35.0); MEAN CORPUSCULAR VOLUME 104.9 fL (80-100); NEUTROPHILS PERCENT AUTO 68.9 % (42.2-75.2); PLATELET COUNT,PLT 190 10^3/uL (150-450); RED BLOOD CELL COUNT 3.64 10^6/uL (4.2-5.4); WHITE BLOOD CELL COUNT,WBC 7.5 10^3/uL (5.0-10.0)
[2023-06-09 07:24] LABS: ALBUMIN 2.8 g/dL (3.4-5.0); ANION GAP 10.3 mEq/L (7-13); BILIRUBIN TOTAL 0.3 mg/dL (0.2-1.0); BUN/CREATININE RATIO 22.1 (No establ ref range); CALCIUM 8.1 mg/dL (8.5-10.1); CREATININE 1.22 mg/dL (0.55-1.02); EST CRCL DRUG DOSING (CG) 31.26 mL/min; MAGNESIUM 2.5 mg/dL (1.8-2.4); POTASSIUM,K 4.3 mmol/L (3.5-5.1)
[2023-06-09 07:29] LABS: A/G RATIO 0.67
== END 2023-06-09 11:15 | disposition other institution (70) | DRG 690 ==
LOC: DL.ED 14:15 → DL.MS 17:37 → DL.ED 17:54 → OBSVTOIN 06-04 10:19
PROVIDERS: ADMIT Internal Medicine; ATTEND Internal Medicine
DX: N39.0 Urinary tract infection, site not specified (principal); B37.89 Other sites of candidiasis; N30.01 Acute cystitis with hematuria; Z68.41 Body mass index [BMI] 40.0-44.9, adult; F17.210 Nicotine dependence, cigarettes, uncomplicated; S82.831A Other fracture of upper and lower end of right fibula, initial encounter for closed fracture; X58.XXXA Exposure to other specified factors, initial encounter; S82.492D Other fracture of shaft of left fibula, subsequent encounter for closed fracture with routine healing; L98.499 Non-pressure chronic ulcer of skin of other sites with unspecified severity; F32.A Depression, unspecified; E03.9 Hypothyroidism, unspecified; M32.9 Systemic lupus erythematosus, unspecified; M35.00 Sjogren syndrome, unspecified; D69.6 Thrombocytopenia, unspecified; N18.30 Chronic kidney disease, stage 3 unspecified; M81.0 Age-related osteoporosis without current pathological fracture; D75.89 Other specified diseases of blood and blood-forming organs; M85.80 Other specified disorders of bone density and structure, unspecified site; R26.9 Unspecified abnormalities of gait and mobility; E87.5 Hyperkalemia; E66.01 Morbid (severe) obesity due to excess calories; D50.9 Iron deficiency anemia, unspecified; Z79.890 Hormone replacement therapy; Z79.899 Other long term (current) drug therapy; Z87.891 Personal history of nicotine dependence
CPT/HCPCS: 0241U; 36415; 71045; 73610-LT; 73610-RT; 80053; 81001; 82306; 83605; 83735; 84439; 84443; 84484; 85025; 85651; 86140; 87086; 93005; 93010; 96361; 96374; 96375; 96376; 97110-GP; 97161-GP; 97165-GO; 97530-GO; 97530-GP; 99223; 99232; 99238; 99284; 99285-25; A9270-GY; G0378; J0696; J1650; J2270; J2405; J3490; J7030; J7040; J7512